=== PATIENT | female | born 1965 | race Caucasian/White ===

== ENCOUNTER 2017-07-04 23:15 | Emergency (ER) | payer BC ==
[~2017-07-04] VITALS: Ht 154.9 cm; Wt 72.6 kg
[2017-07-04 23:22] VITALS: BP_SYST 131
[2017-07-05 01:41] VITALS: BP_SYST 141
== END 2017-07-05 01:41 | disposition home or self-care (01) ==
LOC: SED 23:15
DX: R55 Syncope and collapse (principal); R03.0 Elevated blood-pressure reading, without diagnosis of hypertension; M25.531 Pain in right wrist; M25.571 Pain in right ankle and joints of right foot
CPT/HCPCS: 70450-TC; 93005; 99284